=== PATIENT | female | born 1950 | race Caucasian/White ===

== ENCOUNTER → 2020-11-27 03:09 | Outpatient (CLI) | payer MEDICARE, SELFPAY ==
[2020-11-27 19:50] LABS: SARS-CoV-2 RNA PCR Negative
== END ==
PROVIDERS: PCP Family Medicine; Visit Provider Internal Medicine Gastroenterology
DX: Z01.812 Encounter for preprocedural laboratory examination (principal); Z20.822 Contact with and (suspected) exposure to COVID-19
CPT/HCPCS: C9803; U0003; U0005

== ENCOUNTER 2020-11-30 00:33 | Day surgery (SDC) | payer MEDICARE, SELFPAY ==
[2020-11-17 15:02] VITALS: BMI 34.8
--- NOTE | 2020-11-30 08:30 | WPDANESEPPF ---
Anes - Initial Pre Proc Eval Procedure: Operation Date: 11/30/20 10:00 Proposed Procedures p Screening Colonoscopy - Denilson Mckinney MD Date/Time: 11/30/20 08:30 Surgeon: Denilson Mckinney MD Pre Op Diagnosis: hx of colon polyps Patient Data Age: 70 Gender: F Height: 1.63 m Weight: 92 kg Allergies Allergy/AdvReac Type Severity Reaction Status Date / Time hydromorphone AdvReac Hallucinati Verified 11/30/20 08:58 ng oxycodone AdvReac Nausea and Verified 11/30/20 08:58 Vomiting Home Medications Medication Instructions Recorded Confirmed Type sod picosulf 10 mg-magnes 3.5 160 ml PO BID #160 ml 11/09/20 11/30/20 Rx gram-citric 12 gram/160 mL oral solution Patient hx anesthesia problems: none Family hx anesthesia problems: none [facility] Past Medical History Medical History (Updated 11/30/20 @ 08:30 by Raheel Disla DO) Depression Diverticulosis Surgical History Surgical History (Updated 11/30/20 @ 08:30 by Raheel Disla DO) History of total knee replacement b/l Family History Family History (Updated 10/09/13 @ 10:11 by DOCTOR UNKNOWN) Other Family history of kidney disease Social History Social History Smoking status: Never smoker Alcohol intake: current Alcohol use details: SPECIAL OCCASION Living arrangements: alone Spiritual care concerns: No Anes - Eval Final PreProcedure Day of Procedure 11/30/20 08:30 Patient weight: obese Heart: regular rate and rhythm Lungs: clear to auscultation and normal air movement Airway: Mallampati scale class II Neurological: alert and oriented Last oral intake: >/= 8 hours ASA classification: II Emergent: no Anesthetic plan: proceed Anesthesia type and monitoring: general GIVS and standard monitoring Informed Consent: The patient's anesthetic plan and its attendant risks and benefits were discussed with the patient/family/POA. Questions were solicited and answers provided to the satisfaction of the patient/family/POA.
[2020-11-30 08:59] VITALS: BP 134/90; PULSE 75; RESP 18; TEMP 36.1; O2SAT 97; BMI 34.9
[2020-11-30] MEDS: LACTATED RINGERS 1,000 ML 150 ML IV CONT (09:17)
--- NOTE | 2020-11-30 09:53 | WPDGICN ---
Assessment and Plan Assessment and plan (1) History of colon polyps: Code(s): Z86.010 - Personal history of colonic polyps Status: Acute Assessment and Plan: Patient has a distant history of colon polyps. Has been 10 years since last colonoscopy. Plan is for surveillance colonoscopy now interval of follow-up will be determined by findings of colonoscopy. Further recommendations will be given at that time period GI Consult Note Consult date/time: 11/30/20 09:53 HPI: Shirley Cardona is a 70 year old female Presents for surveillance colonoscopy. Patient has a distant history of colon polyps. She reports that her current weight appetite bowel movements are normal. Patient denies abdominal pain. She has had no bleeding. Family history is noncontributory. It has been 10 years since her last colonoscopy. Review of Systems Review of Systems: All systems reviewed & are unremarkable except as noted in HPI and below PMFSH Past Medical History Medical History Depression Diverticulosis Surgical History Surgical History (Updated 11/30/20 @ 08:30 by Raheel Disla DO) History of total knee replacement b/l Family History Family History (Updated 10/09/13 @ 10:11 by DOCTOR UNKNOWN) Other Family history of kidney disease Social History Social History Smoking status: Never smoker Alcohol intake: current Alcohol use details: SPECIAL OCCASION Living arrangements: alone Spiritual care concerns: No Meds Home Medications and Allergies Home Medications Medication Instructions Recorded Confirmed Type sod picosulf 10 mg-magnes 3.5 160 ml PO BID #160 ml 11/09/20 11/30/20 Rx gram-citric 12 gram/160 mL oral solution Allergies Allergy/AdvReac Type Severity Reaction Status Date / Time hydromorphone AdvReac Hallucinati Verified 11/30/20 08:58 ng oxycodone AdvReac Nausea and Verified 11/30/20 08:58 Vomiting Vital Signs Vital Signs - 24 hr 11/30/20 08:59 Temperature 97 F L Pulse Rate 75 Respiratory Rate 18 Blood Pressure 134/90 Pulse Oximetry 97 Exam Narrative: Exam Narrative: Physical exam reveals patient to be alert. Vital signs stable. HEENT exam is unremarkable. Patient is anicteric. Lungs are clear to auscultation and percussion. Heart is without murmur or extra sounds. Abdominal exam bowel sounds are present soft nontender with no organomegaly. Digital external rectal exam normal.
[2020-11-30 10:19] VITALS: BP 88/53; PULSE 76; RESP 18; O2SAT 96
[2020-11-30 10:29] VITALS: BP 108/70; PULSE 72; RESP 20; O2SAT 98
[2020-11-30 10:39] VITALS: BP 120/78; PULSE 68; RESP 18; O2SAT 97
== END 2020-11-30 10:50 | disposition home or self-care (01) ==
PROVIDERS: PCP Family Medicine; Visit Provider Internal Medicine Gastroenterology
PROC: 0DJD8ZZ Inspection of Lower Intestinal Tract, Via Natural or Artificial Opening Endoscopic (ICD-10-PCS; CPT 45378; principal; 2020-11-30 10:00)
DX: Z12.11 Encounter for screening for malignant neoplasm of colon (principal); D12.2 Benign neoplasm of ascending colon; K63.5 Polyp of colon; K57.30 Diverticulosis of large intestine without perforation or abscess without bleeding; K64.8 Other hemorrhoids; F32.9 Major depressive disorder, single episode, unspecified; E66.9 Obesity, unspecified; Z68.34 Body mass index [BMI] 34.0-34.9, adult
CPT/HCPCS: 45385; 88305; J2704; J7120